=== PATIENT | female | born 1990 | race Asian ===

== ENCOUNTER 2024-05-02 12:12 | Inpatient (IN) | payer OTHER ==
[~2024-05-02] VITALS: Ht 160 cm; Wt 73.0 kg
--- NOTE | 2024-05-02 12:39 | ED.PDOC ---
GI ASSESSMENT HPI Comments 33 y.o female presents to the ED for a chief complaint of nausea, vomiting, diarrhea and abdominal pain that started today around [id number]. Patient reports pain is constant, located to the epigastric region and diffused throughout abdomen. Patient denies any recent contact exposure, fever, chills, bloody stool, or hematemesis. Patient has a history of gallbladder issues and is on Ursodiol. No cholecystectomy reported. No other medical, surgical history or allergies reported. She denies substance, alcohol or tobacco use,. Chief Complaint: Abdominal Pain Time Seen by MD: 12:04 Reviewed Notes: Nurses Notes, Medications, Allergies Allergies: Coded Allergies: NO KNOWN ALLERGIES (Unverified , 05/02/24) Information Source: Patient Mode of Arrival: Ambulatory Timing: Hours Duration: Since onset Quality: Aching Vomitus: Hard Stool: Loose Severity: Moderate Recent: None Recent Hx of: None Pain Location: Diffuse, Epigastric Modifying Factors: Nothing Associated sign and symptoms: Nausea, Vomiting, Diarrhea, Abdominal Pain Past Medical History PAST MEDICAL HISTORY: Gallstones Surgical History: Denies all surgeries DEAL ARCHITECT History: No Pertinent DEAL ARCHITECT History Family History Family History: Reviewed,noncontributory to illness, No family hx of Cancer, No family hx of DM, No family hx of Heart patrick, No family hx of HTN, No family hx ofKidney patrick, No family hx of Liver patrick, No family hx of Lung patrick, No family hx of Stroke Social History Smoker: Non-Smoker Alcohol: Denies ETOH Use Drugs: Denies Drug Use Lives In: Home Constitutional: denies: chills, diaphoresis, fatigue, fever, malaise, sweats, weakness, others EENTM: denies: blurred vision, double vision, ear bleeding, ear discharge, ear drainage, ear pain, ear ringing, eye pain, eye redness, hearing loss, mouth pain, mouth swelling, nasal discharge, nose bleeding, nose congestion, nose pain, photophobia, tearing, throat pain, throat swelling, voice changes, others Respiratory: denies: cough, hemoptysis, orthopnea, SOB at rest, shortness of breath, SOB with excertion, stridor, wheezing, others Cardiovascular: denies: chest pain, dizzy spells, diaphoresis, Dyspnea on exertion, edema, irregular heart beat, left arm pain, lightheadedness, palpitations, PND, syncope, others Gastrointestinal: reports: abdominal pain, diarrhea, nausea, vomiting; denies: abdomen distended, blood streaked bowels, constipated, dysphagia, difficulty swallowing, hematemesis, melena, poor appetite, poor fluid intake, rectal bleeding, rectal pain, others Genitourinary: denies: abnormal vagina bleeding, burning, dyspareunia, dysuria, flank pain, frequency, hematuria, incontinence, pain, , vagina discharge, urgency, others Neurological: denies: dizziness, fainting, headache, left sided numbness, left sided weakness, numbness, paresthesia, pre-existing deficit, right sided numbness, right sided weakness, seizure, speech problems, tingling, tremors, weakness, others Musculoskeletal: denies: back pain, gout, joint pain, joint swelling, muscle pain, muscle stiffness, neck pain, others Integumetry: denies: bruises, change in color, change in hair/nails, dryness, laceration, lesions, lumps, rash, wounds, others Allergic/Immunocompromised: denies: Difficulty Healing, Frequent Infections, Hives, Itching, others Hematologic/Lymphatic: denies: anemia, blood clots, easy bleeding, easy bruising, swollen glands, others Endocrine: denies: excessive hunger, excessive sweating, excessive thirst, excessive urination, flushing, intolerance to cold, intolerance to heat, unexplained weight gain, unexplained weight loss, others Psychiatric: denies: anxiety, bipolar disorder, depression, hopeless, panic disorder, schizophrenia, sleepless, suicidal, others All Other Systems: Reviewed and Negative Physical Exam General Appearance: No Apparent Distress, Normal HEENT: Normal ENT Inspection, Pharynx Normal, TMs Normal Neck: Full Range of Motion, Non-Tender, Normal, Normal Inspection Respiratory: Chest Non-Tender, Lungs Clear, No Accessory Muscle Use, No Respiratory Distress, Normal Breath Sounds Cardiovascular: No Edema, No JVD, No Murmur, No Gallop, Normal Peripheral Pulses, Regular Rate/Rhythm Breast Exam: Deferred Gastrointestinal: Diffuse, Tenderness (mild; epigastric ), Other (No rebound or guarding noted ) Genitalia: Deferred Pelvic: Deferred Rectal: Deferred Extremities: No calf tenderness, Normal capillary refill, Normal inspection, Normal range of motion, Non-tender, No pedal edema Musculoskeletal : Apperance: Normal Neurologic: Alert, rougher merchant mill II-XII nml as Tested, No Motor Deficits, Normal Affect, Normal Mood, No Sensory Deficits Cerebellar Function: Normal Reflexes: Normal Skin: Dry, Normal Color, Warm Lymphatic: No Adenopathy Was a procedure done? Was a procedure done?: No GI differential Dx Differential Diagnosis: Complete , Incomplete , Inevitable , Missed , Threatened , Abruptio placentae, Cholangitis, Cholecystitis, Constipation, Diverticular disease, Ectopic , Esophagitis, Gastritis/PUD, Gastroenteritis, Hernia, Hepatitis, Inflammatory BD, Ovarian cyst/torsion, Urinary Obstruction, UTI, Urolithiasis, Dehydration, Electrolyte Imbalance, Food Poisoning, , Bacterial, Viral, Impaction, Kidney Stone X-Ray, Labs, Meds, VS Vital Signs Date Time Temp Pulse Resp B/P (MAP) Pulse Ox O2 Delivery O2 Flow Rate FiO2 05/02/24 13:49 88 15 129/70 05/02/24 13:30 85 17 97 Room Air 05/02/24 13:30 98.5 79 17 121/64 (83) 98 98.5 05/02/24 12:27 97.6 75 16 105/69 (81) 97 Lab Test 05/02/24 12:38 05/02/24 12:33 Range/Units Urine Color Yellow Yellow Urine Clarity Clear Clear Urine pH 5.5 5.0-9.0 Urine Specific [place] 1.029 1.001-1.035 Urine Protein Trace H Negative Urine Ketones Negative Negative Urine Blood 1+ H Negative /uL Urine Nitrite Negative Negative Urine Bilirubin Negative Negative Urine Urobilinogen Normal Negative mg/dL Urine Leukocyte Esterase 1+ Negative /uL Urine RBC 6 0 - 4 /hpf Urine WBC 2 0 - 5 /hpf Urine Squamous Epithelial Cells Few <5 /hpf Urine Bacteria Few H None Seen /hpf Urine Mucus Few None Seen Urine Glucose Normal Normal mg/dL White Blood Count 12.0 H 4.4-10.8 10^3/uL Red Blood Count 6.11 H 4.0-5.20 10^6/uL Hemoglobin 13.6 12.2-16.2 g/dL Hematocrit 43.2 36.0-46.0 % Mean Corpuscular Volume 70.7 L 80.0-100.0 fL Mean Corpuscular Hemoglobin 22.3 L 28.0-32.0 pg Mean Corpuscular Hemoglobin Concent 31.5 L 32.0-36.0 g/dL Red Cell Distribution Width 14.8 H 11.8-14.3 % Platelet Count 289 140-450 10^3/uL Mean Platelet Volume 7.7 6.9-10.8 fL Neutrophils (%) (Auto) 83.1 H 37.0-80.0 % Lymphocytes (%) (Auto) 11.8 10.0-50.0 % Monocytes (%) (Auto) 4.6 0.0-12.0 % Eosinophils (%) (Auto) 0.4 0.0-7.0 % Basophils (%) (Auto) 0.1 0.0-2.0 % Neutrophils # (Auto) 10.0 H 1.6-8.6 10 ^3/uL Lymphocytes # (Auto) 1.4 0.4-5.4 10 ^3/uL Monocytes # (Auto) 0.6 0-1.3 10 ^3/uL Eosinophils # (Auto) 0 0-0.8 10 ^3/uL Basophils # (Auto) 0 0-0.2 10 ^3/uL Nucleated Red Blood Cells 0.0 % Sodium Level 141 136-145 mmol/L Potassium Level 3.7 3.5-5.1 mmol/L Chloride Level 103 98-107 mmol/L Carbon Dioxide Level 29 20-31 mmol/L Anion Gap 9 5-15 Blood Urea Nitrogen 12 9-23 mg/dL Creatinine 0.65 0.550-1.02 mg/dL Glomerular Filtration Rate Calc 118 >90 mL/min BUN/Creatinine Ratio 18.5 10.0-20.0 Serum Glucose 104 74-106 mg/dL Calcium Level 10.2 8.7-10.4 mg/dL Total Bilirubin 1.3 H 0.2-1.0 mg/dL Aspartate Amino Transferase (AST) 17 13-40 U/L Alanine Aminotransferase (ALT) 24 7-40 U/L Alkaline Phosphatase 54 46-116 U/L Total Protein 8.0 5.7-8.2 g/dL Albumin 5.0 H 3.2-4.8 g/dL Lipase 36 12-53 U/L Beta HCG, Quantitative 1.6 1.5-4.2 mIU/mL Current Medications Medications (Trade) Dose Ordered Sig/Efra Route Start Time Stop Time Status Last Admin Ondansetron HCl (Zofran) 4 mg ONCE ONCE IV 05/02/24 12:30 05/02/24 12:31 DC 05/02/24 13:48 Morphine Sulfate 2 mg ONCE ONCE IV 05/02/24 12:30 05/02/24 12:31 DC 05/02/24 13:49 Time of 1ST Reevaluation: 12:32 Reevaluation 1ST: Unchanged Time of 2ND Reevaluation: 14:11 Reevaluation 2ND: Unchanged Patient Education/Counseling: Diagnosis, Treatment, Prognosis Family Education/Counseling: No Family Present Additional Information Ordered Test- CBC, CMP, UA , hcg, gb us Reviewed Results- LAB including: Beta HCG, Lipase. US gallbladder Discuss Tx/Results-medical personnel, financial services consultant independent interpretation of test results from other providers- gb us- agree with radiology pt has intractable biliary colic, with evidence of biliary obstruction, with dilated CBD and elevated tbili. pt will be admitted for surgery/gi consult and pain control Departure 1 Departure Time of Disposition: 14:16 Impression: Primary Impression: Biliary obstruction Additional Impressions: Intractable abdominal pain Hyperbilirubinemia Disposition: ADMITTED INPATIENT Admit to: Med Surg Condition: Stable Critical Care Note Critical Care Time?: Yes (45 min-critical care time only) Critical care comment: due to concerns for sudden deterioration of pt's condition, the patient's care required my most attentive level and highest readiness to intervene. i assessed him, ordered the appropriate orders, reviewed the results, and reassessed the patient's response, formulated a care plan, communicated with medical personnel and consultants. total time include at least 50% face-face interaction and does not include any procedures Stability Stability form required: No I personally scribed for YASMINE WATTS MD ([facility]) on 05/02/24 at 12:39. Electronically submitted by Ayala Medina ([employer]). I personally scribed for YASMINE WATTS MD ([facility]) on 05/02/24 at 13:00. Electronically submitted by Ayala Medina ([employer]). YASMINE WATTS MD May 02, 2024 12:39
[2024-05-02 12:46] LABS: Basophils # (auto) 0 10 ^3/uL (0-0.2); Eosinophils # (auto) 0 10 ^3/uL (0-0.8); Eosinophils % (auto) 0.4 % (0.0-7.0); Lymphocytes # (auto) 1.4 10 ^3/uL (0.4-5.4); Mean Corpuscular Hemoglobin 22.3 pg (28.0-32.0); Monocytes # (auto) 0.6 10 ^3/uL (0-1.3)
[2024-05-02 12:48] LABS: Basophils % (auto) 0.1 % (0.0-2.0); Hematocrit 43.2 % (36.0-46.0); Hemoglobin 13.6 g/dL (12.2-16.2); Lymphocytes % (auto) 11.8 % (10.0-50.0); Mean Corpuscular Hgb Conc. 31.5 g/dL (32.0-36.0); Mean Corpuscular Volume 70.7 fL (80.0-100.0); Monocytes % (auto) 4.6 % (0.0-12.0); Neutrophils % (auto) 83.1 % (37.0-80.0); Platelet Count (auto) 289 10^3/uL (140-450); Red Blood Cells 6.11 10^6/uL (4.0-5.20); Red Cell Distribution Width 14.8 % (11.8-14.3)
[2024-05-02 12:51] LABS: Urine Bacteria FEW /hpf (None Seen); Urine Blood 1+ /uL (Negative); Urine Clarity Clear (Clear); Urine Color Yellow (Yellow); Urine Mucus FEW (None Seen); Urine Protein, UAD TRACE (Negative); Urine Specific Gravity 1.029 (1.001-1.035); Urine Urobilinogen Normal (Negative); Urine WBC 2 /hpf (0 - 5); Urine pH 5.5 (5.0-9.0)
[2024-05-02 13:11] LABS: Alanine Aminotransferase 24 U/L (7-40); Alkaline Phosphatase 54 U/L (46-116); Anion Gap 9 (5-15); Aspartate Aminotransferase 17 U/L (13-40); BUN/Creatinine Ratio 18.5 (10.0-20.0); Blood Urea Nitrogen 12 mg/dL (9-23); Calcium 10.2 mg/dL (8.7-10.4); Carbon Dioxide 29 mmol/L (20-31); Chloride 103 mmol/L (98-107); Glucose 104 mg/dL (74-106); Potassium 3.7 mmol/L (3.5-5.1); Sodium 141 mmol/L (136-145)
[2024-05-02 13:12] LABS: Bilirubin, Total 1.3 mg/dL (0.2-1.0)
[2024-05-02 13:23] LABS: Lipase 36 U/L (12-53)
--- NOTE | 2024-05-02 13:43 | DVH ---
INDICATION: epigastric pain TECHNIQUE: Multiple real-time sonographic images were obtained of the right upper quadrant. COMPARISON: None Comments: Per mixing technician, difficult exam due to body habitus. FINDINGS: The liver demonstrates increased echotexture without focal mass lesions. The liver measures 17 cm. Normal hepatopetal flow in the liver. There is no intrahepatic ductal dilatation. The common duct measures 0.8 cm. The gallbladder is completely filled with gallstones and sludge. Specifically there does appear to be a shadowing gallstone near the gallbladder neck. There is gallbladder wall thickening ( 6 mm) and l ikely some pericholecystic fluid. The right kidney measures 12.6 cm in length. The right kidney is normal in contour, size, and shape. The echogenicity is normal. There is no hydronephrosis. Anechoic 1.4 cm structure at the right inf erior renal pole is consistent with a cyst. The pancreas is not well visualized due to overlying bowel gas. IMPRESSION: 1. Gallbladder is filled with gallstones and sludge, and there appears to be a large stone near the gallbladder neck. There is also gallbladder wall thickening ( 6 mm) and probable pericholecystic flui d. Findings are suspicious for acute cholecystitis. 2. Mild prominence of the common bile duct (8 mm). Can not exclude common bile duct obstruction. 3. Hepatic steatosis. 4. Small right renal cyst.
[2024-05-02] MEDS: ONDANSETRON HCL 4 MG/2 ML VIAL IV ONE (13:48)
[2024-05-02] MEDS: MORPHINE SULFATE INJ 2 MG/ml SYRG IV ONE (13:49)
[2024-05-02] MEDS: SODIUM CHLORIDE 0.9% 1,000 ML IV ONE (14:15)
[2024-05-02 14:40] VITALS: BP 112/64; PULSE 77; RESP 18; TEMP 98.3; O2SAT 99
[2024-05-02] MEDS ORDERED: MORPHINE SULFATE INJ 2 MG/ml SYRG IV PRN (15:15)
[2024-05-02] MEDS ORDERED: LORazepam 0.5 MG TAB PO PRN (15:15)
[2024-05-02] MEDS ORDERED: ACETAMINOPHEN 325 MG TAB PO PRN (15:15)
[2024-05-02] MEDS ORDERED: DOCUSATE SOD 100 MG CAP PO PRN (15:15)
[2024-05-02] MEDS: fentaNYL CITRATE 100 MCG/2 ML VL IV ONE (15:24)
--- NOTE | 2024-05-02 15:36 | DVHHP2 ---
History of Present Illness Reason for Visit: Abdominal pain History of Present Illness 33-year-old female who obese comes to the ED with complaints of nausea vomiting abdominal pain patient does have a history of gallstones states no other medical history takes no other medications with having right upper quadrant pain is evaluated in the ED states that for her gallstone history she does take medications including estradiol never had a history of reported cholecystectomy or hoping abdominal surgery at any point in time patient now has worsening abdominal pain ultrasound of the gallbladder was completed in the ED patient with believes signs of acute cholecystitis recommended for further evaluation and possible surgical evaluation. Review of Systems Constitutional: Yes: Weakness; No: Fever, Chills, Sweats, Malaise, Other Eyes: No: Pain, Vision change, Conjunctivae inflammation, Eyelid inflammation, Other, Redness ENT: No: Ear pain, Ear discharge, Nose pain, Nose discharge, Nose congestion, Mouth pain, Mouth swelling, Throat pain, Throat swelling, Other Respiratory: No: Cough, Dry, Shortness of breath, SOB with excertion, Wheezing, Hemoptysis, Pleuritic Pain, Sputum, Wheezing, Other Cardiovascular: No: Chest Pain, Palpitations, Orthopnea, Paroxysmal Noc. Dyspnea, Edema, Lt Headedness, Other Gastrointestinal: Abdominal Pain; No: Nausea, Vomiting, Diarrhea, Constipation, Melena, Hematochezia, Other Genitourinary: No Dysuria, No Frequency, No Incontinence, No Hematuria, No Retention, No Other Musculoskeletal: No: other, neck pain, shoulder pain, arm pain, back pain, hand pain, leg pain, foot pain Skin: No: Rash, Lesions, Jaundice, Bruising, Other Neurological: No: Weakness, Numbness, Incoordination, Change in speech, Confusion, Seizures, Other Allergies: Coded Allergies: NO KNOWN ALLERGIES (Unverified , 05/02/24) Medications Current Medications Medications Dose Ordered Sig/Efra Route Start Time Stop Time Status Last Admin Dose Admin Ceftriaxone Sodium 50 ml @ 100 mls/hr DAILY IV 05/02/24 15:15 Lorazepam 0.5 mg Q6HP PRN PO 05/02/24 15:15 Al Hydrox/Mg Hydrox/Simethicone 30 ml Q6HP PRN PO 05/02/24 15:15 Docusate Sodium 100 mg BIDPRN PRN PO 05/02/24 15:15 Acetaminophen 650 mg Q6HP PRN PO 05/02/24 15:15 Acetaminophen/ Hydrocodone Bitart 1 tab Q4HP PRN PO 05/02/24 15:15 Ondansetron HCl 4 mg Q4HP PRN IV 05/02/24 15:15 Morphine Sulfate 2 mg Q4HPRN PRN IV 05/02/24 15:15 Exam Vital Signs Vital Signs Date Time Temp Pulse Resp B/P (MAP) Pulse Ox O2 Delivery O2 Flow Rate FiO2 05/02/24 15:24 130/70 05/02/24 15:24 77 18 05/02/24 15:15 98.0 99 98.0 05/02/24 13:30 Room Air General Appearance: Alert, Oriented X3 HEENT: Atraumatic, PERRLA, EOMI Respiratory: Clear to auscultation, Normal air movement Cardiovascular: Regular rate, Normal S1, Normal S2 Abdominal: Normal bowel sounds, Soft, No tenderness Extremities: No clubbing, No cyanosis, No edema Skin: No rashes, No breakdown Neuro: Normal gait, Normal speech Psych/Mental Status: Mood NL Labs/Xrays Labs Test 05/02/24 12:38 05/02/24 12:33 Range/Units Urine Color Yellow Yellow Urine Clarity Clear Clear Urine pH 5.5 5.0-9.0 Urine Specific [place] 1.029 1.001-1.035 Urine Protein Trace H Negative Urine Ketones Negative Negative Urine Blood 1+ H Negative /uL Urine Nitrite Negative Negative Urine Bilirubin Negative Negative Urine Urobilinogen Normal Negative mg/dL Urine Leukocyte Esterase 1+ Negative /uL Urine RBC 6 0 - 4 /hpf Urine WBC 2 0 - 5 /hpf Urine Squamous Epithelial Cells Few <5 /hpf Urine Bacteria Few H None Seen /hpf Urine Mucus Few None Seen Urine Glucose Normal Normal mg/dL White Blood Count 12.0 H 4.4-10.8 10^3/uL Red Blood Count 6.11 H 4.0-5.20 10^6/uL Hemoglobin 13.6 12.2-16.2 g/dL Hematocrit 43.2 36.0-46.0 % Mean Corpuscular Volume 70.7 L 80.0-100.0 fL Mean Corpuscular Hemoglobin 22.3 L 28.0-32.0 pg Mean Corpuscular Hemoglobin Concent 31.5 L 32.0-36.0 g/dL Red Cell Distribution Width 14.8 H 11.8-14.3 % Platelet Count 289 140-450 10^3/uL Mean Platelet Volume 7.7 6.9-10.8 fL Neutrophils (%) (Auto) 83.1 H 37.0-80.0 % Lymphocytes (%) (Auto) 11.8 10.0-50.0 % Monocytes (%) (Auto) 4.6 0.0-12.0 % Eosinophils (%) (Auto) 0.4 0.0-7.0 % Basophils (%) (Auto) 0.1 0.0-2.0 % Neutrophils # (Auto) 10.0 H 1.6-8.6 10 ^3/uL Lymphocytes # (Auto) 1.4 0.4-5.4 10 ^3/uL Monocytes # (Auto) 0.6 0-1.3 10 ^3/uL Eosinophils # (Auto) 0 0-0.8 10 ^3/uL Basophils # (Auto) 0 0-0.2 10 ^3/uL Nucleated Red Blood Cells 0.0 % Sodium Level 141 136-145 mmol/L Potassium Level 3.7 3.5-5.1 mmol/L Chloride Level 103 98-107 mmol/L Carbon Dioxide Level 29 20-31 mmol/L Anion Gap 9 5-15 Blood Urea Nitrogen 12 9-23 mg/dL Creatinine 0.65 0.550-1.02 mg/dL Glomerular Filtration Rate Calc 118 >90 mL/min BUN/Creatinine Ratio 18.5 10.0-20.0 Serum Glucose 104 74-106 mg/dL Calcium Level 10.2 8.7-10.4 mg/dL Total Bilirubin 1.3 H 0.2-1.0 mg/dL Aspartate Amino Transferase (AST) 17 13-40 U/L Alanine Aminotransferase (ALT) 24 7-40 U/L Alkaline Phosphatase 54 46-116 U/L Total Protein 8.0 5.7-8.2 g/dL Albumin 5.0 H 3.2-4.8 g/dL Lipase 36 12-53 U/L Beta HCG, Quantitative 1.6 1.5-4.2 mIU/mL Assessment/Plan Assessment/Plan Admit to med surge Suspected acute cholecystitis secondary to gallstones Surgical consult evaluation Patient with leukocytosis IV hydration IV antibiotics with Flagyl q.6 P.r.n. pain med education No acute lives at the infection possible UTI Plan discussed with: Patient My Orders Orders - EVENS HERRERA MD Procedure Category Date Status Time Ceftriaxone 1gm/50ml PHA 05/02/24 In Process D5w (Rocephin) 15:15 Admit ADMIT 05/02/24 Transmitted 15:12 Code Status CODE 05/02/24 Transmitted 15:12 Vital Signs [facility] 05/02/24 In Process 15:12 Review Orders With [facility] 05/02/24 In Process Adm.Md 15:12 Npo (Nothing By DIET 05/02/24 Transmitted Mouth) Diet Dinner Lorazepam Tablet PHA 05/02/24 In Process (Ativan Tablet) 15:15 Alum & Mag PHA 05/02/24 In Process Hydrox-Simethicone 15:15 Docusate Sodium PHA 05/02/24 In Process Capsule (Colace 15:15 Acetaminophen Tablet PHA 05/02/24 In Process (Tylenol Tablet) 15:15 Notify Of Changes [facility] 05/02/24 In Process From Base 15:12 Advance Directive [facility] 05/02/24 In Process 15:12 Basic Metabolic Panel LAB 05/03/24 Verified 04:00 Complete Blood Count LAB 05/03/24 Verified 04:00 Patient Condition ORDERS 05/02/24 Transmitted 15:12 Allergies [facility] 05/02/24 In Process 15:12 Hydrocodone-Acet PHA 05/02/24 In Process 5/325mg Tab ([place] 15:15 Ondansetron Hcl PHA 05/02/24 In Process (Zofran) 15:15 Morphine Sulfate PHA 05/02/24 In Process Injection 15:15 Notify Md Of Changes [facility] 05/02/24 In Process From Base 15:12 Oxygen By Nasal RT 05/02/24 Transmitted Cannula 15:12 * Surgical Consult CONS 05/02/24 Transmitted Problem List: (1) Hyperbilirubinemia (2) Biliary obstruction (3) Intractable abdominal pain Date of Service: May 02, 2024 Billing Provider: EVENS HERRERA MD Common Visit Codes: [id number] INP/OBS CARE (HIGH) EVENS HERRERA MD May 02, 2024 15:36
[2024-05-02] MEDS: cefTRIAXone 1GM/50ML D5W 50 ML IV SCH (17:00)
[2024-05-02 17:47] VITALS: BP 103/58; PULSE 85; RESP 16; TEMP 97.6; O2SAT 96
[2024-05-02 18:09] VITALS: O2SAT 98
[2024-05-02] MEDS ORDERED: URSO300C2 PO (18:37)
[2024-05-02 20:00] VITALS: PULSE 74; RESP 16; O2SAT 98
[2024-05-02] MEDS: ONDANSETRON HCL 4 MG/2 ML VIAL IV PRN (21:00)
[2024-05-02] MEDS: MAALOX PLUS or MAALOX 30 ML PO PRN (21:33)
[2024-05-02] MEDS: HYDROcodone-ACET 5/325MG TAB PO PRN (21:34)
[2024-05-03] VITALS (8 sets, daily range): BP systolic 112–138; BP diastolic 62–82; PULSE 58–86; RESP 16–18; TEMP 98.2–98.7; O2SAT 95–98
[2024-05-03 07:04] LABS: Basophils # (auto) 0 10 ^3/uL (0-0.2); Basophils % (auto) 0.1 % (0.0-2.0); Eosinophils # (auto) 0 10 ^3/uL (0-0.8); Hematocrit 37.9 % (36.0-46.0); Lymphocytes % (auto) 11.5 % (10.0-50.0); Mean Corpuscular Hemoglobin 22.3 pg (28.0-32.0); Mean Corpuscular Hgb Conc. 31.7 g/dL (32.0-36.0); Mean Corpuscular Volume 70.4 fL (80.0-100.0); Monocytes # (auto) 0.6 10 ^3/uL (0-1.3); Monocytes % (auto) 7.6 % (0.0-12.0); Neutrophils # (auto) 6.7 10 ^3/uL (1.6-8.6); Neutrophils % (auto) 80.8 % (37.0-80.0); Platelet Count (auto) 234 10^3/uL (140-450); Red Blood Cells 5.38 10^6/uL (4.0-5.20); Red Cell Distribution Width 14.6 % (11.8-14.3); White Blood Cell 8.3 10^3/uL (4.4-10.8)
[2024-05-03 07:14] LABS: Chloride 105 mmol/L (98-107); Sodium 141 mmol/L (136-145)
[2024-05-03 07:15] LABS: Anion Gap 11 (5-15); Calcium 9.2 mg/dL (8.7-10.4); Carbon Dioxide 25 mmol/L (20-31)
[2024-05-03 07:18] LABS: Potassium 3.3 mmol/L (3.5-5.1)
[2024-05-03 07:21] LABS: Glucose 91 mg/dL (74-106)
[2024-05-03 07:30] LABS: Blood Urea Nitrogen 8 mg/dL (9-23)
--- NOTE | 2024-05-03 10:32 | DVHINCON2 ---
Date of service: May 03, 2024 History of Present Illness 33-year-old female with a previous history of gallstones admitted secondary to one day history of severe right upper quadrant abdominal pain associated with nausea and vomiting and diarrhea. Past Medical History History of gallstones Past Surgical History None Family History: Diabetes mellitus G8 MOTHER Hypertension G8 FATHER Family History Noncontributory Social History No alcohol, tobacco, IV drug use Allergies: Coded Allergies: NO KNOWN ALLERGIES (Unverified , 05/02/24) Home Meds Reported Medications Ursodiol (Ursodiol) 300 Mg Cap, 1 CAP PO BID 05/02/24 Current Medications Current Medications Medications (Trade) Dose Ordered Sig/Efra Route PRN Reason Start Time Stop Time Status Last Admin Ceftriaxone Sodium 50 ml @ 100 mls/hr DAILY IV 05/02/24 15:15 05/03/24 09:42 Lorazepam (Ativan Tablet) 0.5 mg Q6HP PRN PO ANXIETY 05/02/24 15:15 Al Hydrox/Mg Hydrox/Simethicone (Maalox Plus) 30 ml Q6HP PRN PO FOR STOMACH DISTRESS 05/02/24 15:15 05/02/24 21:33 Docusate Sodium (Colace Capsule) 100 mg BIDPRN PRN PO FOR CONSTIPATION 05/02/24 15:15 Acetaminophen (Tylenol Tablet) 650 mg Q6HP PRN PO PAIN SCALE 1-3 OR TEMP>100.4 05/02/24 15:15 Acetaminophen/ Hydrocodone Bitart ([place] 5/325MG Tab) 1 tab Q4HP PRN PO MODERATE PAIN (4-6 PAIN SCALE) 05/02/24 15:15 05/02/24 21:34 Ondansetron HCl (Zofran) 4 mg Q4HP PRN IV NAUSEA / VOMITING 05/02/24 15:15 05/03/24 09:43 Morphine Sulfate 2 mg Q4HPRN PRN IV SEVERE PAIN (7-10 PAIN SCALE) 05/02/24 15:15 Vital Signs Vital Signs Date Time Temp Pulse Resp B/P (MAP) Pulse Ox O2 Delivery O2 Flow Rate FiO2 05/03/24 09:00 98.4 77 18 112/62 (79) 98 98.4 05/03/24 07:52 Room Air* 0 21 Physical Exam GEN: Age-appropriate female in no acute distress. Alert. HEENT: Normocephalic atraumatic. Moist mucous membranes. Anicteric sclerae. CV: RRR Respiratory: CTAB ABD: Epigastric and right upper quadrant tenderness to palpation with minimal guarding. Nondistended. Abdominal ultrasound: Gallbladder is filled with gallstones and sludge with a large stone near the neck of the gallbladder. There was also gallbladder thickening measuring 6 mm with probable pericholecystic fluid suspicious for acute cholecystitis. Prominent common bile duct at 8 mm. Labs/Diagnostic Data Labs Test 05/03/24 06:42 05/02/24 12:38 05/02/24 12:33 Range/Units White Blood Count 8.3 # 4.4-10.8 10^3/uL Red Blood Count 5.38 H 4.0-5.20 10^6/uL Hemoglobin 12.0 L 12.2-16.2 g/dL Hematocrit 37.9 # 36.0-46.0 % Mean Corpuscular Volume 70.4 L 80.0-100.0 fL Mean Corpuscular Hemoglobin 22.3 L 28.0-32.0 pg Mean Corpuscular Hemoglobin Concent 31.7 L 32.0-36.0 g/dL Red Cell Distribution Width 14.6 H 11.8-14.3 % Platelet Count 234 140-450 10^3/uL Mean Platelet Volume 7.2 6.9-10.8 fL Neutrophils (%) (Auto) 80.8 H 37.0-80.0 % Lymphocytes (%) (Auto) 11.5 10.0-50.0 % Monocytes (%) (Auto) 7.6 0.0-12.0 % Eosinophils (%) (Auto) 0.0 0.0-7.0 % Basophils (%) (Auto) 0.1 0.0-2.0 % Neutrophils # (Auto) 6.7 1.6-8.6 10 ^3/uL Lymphocytes # (Auto) 1.0 0.4-5.4 10 ^3/uL Monocytes # (Auto) 0.6 0-1.3 10 ^3/uL Eosinophils # (Auto) 0 0-0.8 10 ^3/uL Basophils # (Auto) 0 0-0.2 10 ^3/uL Nucleated Red Blood Cells 0.0 % Sodium Level 141 136-145 mmol/L Potassium Level 3.3 L 3.5-5.1 mmol/L Chloride Level 105 98-107 mmol/L Carbon Dioxide Level 25 20-31 mmol/L Anion Gap 11 5-15 Blood Urea Nitrogen 8 L 9-23 mg/dL Creatinine 0.50 L 0.550-1.02 mg/dL Glomerular Filtration Rate Calc 125 >90 mL/min BUN/Creatinine Ratio 16.0 10.0-20.0 Serum Glucose 91 74-106 mg/dL Calcium Level 9.2 8.7-10.4 mg/dL Urine Color Yellow Yellow Urine Clarity Clear Clear Urine pH 5.5 5.0-9.0 Urine Specific [place] 1.029 1.001-1.035 Urine Protein Trace H Negative Urine Ketones Negative Negative Urine Blood 1+ H Negative /uL Urine Nitrite Negative Negative Urine Bilirubin Negative Negative Urine Urobilinogen Normal Negative mg/dL Urine Leukocyte Esterase 1+ Negative /uL Urine RBC 6 0 - 4 /hpf Urine WBC 2 0 - 5 /hpf Urine Squamous Epithelial Cells Few <5 /hpf Urine Bacteria Few H None Seen /hpf Urine Mucus Few None Seen Urine Glucose Normal Normal mg/dL Total Bilirubin 1.3 H 0.2-1.0 mg/dL Aspartate Amino Transferase (AST) 17 13-40 U/L Alanine Aminotransferase (ALT) 24 7-40 U/L Alkaline Phosphatase 54 46-116 U/L Total Protein 8.0 5.7-8.2 g/dL Albumin 5.0 H 3.2-4.8 g/dL Lipase 36 12-53 U/L Beta HCG, Quantitative 1.6 1.5-4.2 mIU/mL Assessment 1. Acute cholecystitis with possible choledocholithiasis Plan/Recommendation 1. MRCP to assess for possible common bile duct stone. If it is negative we will proceed with the laparoscopic cholecystectomy possible open surgery. Informed consent: The surgery and its risks including but not limited to infection, bleeding requiring possible blood transfusion with the risk of hepatitis or HIV infection, open cholecystectomy, possible cystic duct leak or retained common bile duct stone requiring further intervention such as an ERCP, possible perioperative MS or stroke were explained to the patient. All questions were answered to her satisfaction. She expressed verbal understanding and wished to proceed with the surgery. Plan discussed with: Patient WILBERTO DISLA MD May 03, 2024 10:32
[2024-05-03] MEDS: D5W/SOD CHL 0.45%/KCL 20MEQ 1,000 ML IV SCH (12:00)
--- NOTE | 2024-05-03 12:50 | DVHPN2 ---
Subjective Patient denies any pain at this time. Reviewed: Care Plan, H&P, Labs, Medications Changes from previous H/P or p: No Changes General: Per HPI Eyes: No Pain, No Vision change, No Conjunctivae inflammation, No Eyelid inflammation, No Other, No Redness ENT: No Ear pain, No Ear discharge, No Nose pain, No Nose discharge, No Nose congestion, No Mouth pain, No Mouth swelling, No Throat pain, No Throat swelling, No Other Cardiovascular: No Chest Pain, No Palpitations, No Orthopnea, No Paroxysmal Noc. Dyspnea, No Edema, No Lt Headedness, No Other Respiratory: No Cough, No Dry, No Shortness of breath, No SOB with excertion, No Wheezing, No Hemoptysis, No Pleuritic Pain, No Sputum, No Other Gastrointestinal: No Nausea, No Vomiting; Abdominal Pain; No Diarrhea, No Constipation, No Melena, No Hematochezia, No Other Genitourinary: No Dysuria, No Frequency, No Incontinence, No Hematuria, No Retention, No Other Musculoskeletal: No other, No neck pain, No shoulder pain, No arm pain, No back pain, No hand pain, No leg pain, No foot pain Skin: No Rash, No Lesions, No Jaundice, No Bruising, No Other Objective Vitals Vital Signs Date Time Temp Pulse Resp B/P (MAP) Pulse Ox O2 Delivery O2 Flow Rate FiO2 05/03/24 09:00 98.4 77 18 112/62 (79) 98 98.4 05/03/24 07:52 Room Air* 0 21 Intake/Output Intake and Output 05/03/24 07:00 Intake Total 1100 ml Balance 1100 ml Intake Oral 0 ml IV Total 1100 ml # Voids 3 # Bowel Movements 1 General Appearance: Alert, Oriented X3, Cooperative, No acute distress, mild distress HEENT: Atraumatic, PERRLA Cardiovascular: Normal S1, Normal S2 Abdomen: Normal bowel sounds, Soft, No tenderness Musculoskeletal: Normal sensory function, Normal motor function Neuro: Normal gait, Normal speech Psych/Mental Status: Mental status NL, Mood NL Medications Current Medications Medications Dose Ordered Sig/Efra Route Start Time Stop Time Status Last Admin Dose Admin Ceftriaxone Sodium 50 ml @ 100 mls/hr DAILY IV 05/02/24 15:15 05/03/24 09:42 100 MLS/HR Lorazepam 0.5 mg Q6HP PRN PO 05/02/24 15:15 Al Hydrox/Mg Hydrox/Simethicone 30 ml Q6HP PRN PO 05/02/24 15:15 05/02/24 21:33 30 ML Docusate Sodium 100 mg BIDPRN PRN PO 05/02/24 15:15 Acetaminophen 650 mg Q6HP PRN PO 05/02/24 15:15 Acetaminophen/ Hydrocodone Bitart 1 tab Q4HP PRN PO 05/02/24 15:15 05/02/24 21:34 1 TAB Ondansetron HCl 4 mg Q4HP PRN IV 05/02/24 15:15 05/03/24 09:43 4 MG Morphine Sulfate 2 mg Q4HPRN PRN IV 05/02/24 15:15 Metronidazole 100 ml @ 100 mls/hr Q8HR IV 05/03/24 14:00 Potassium Chloride/Dextrose/ Sod Cl 1,000 ml @ 100 mls/hr Q10H IV 05/03/24 12:00 Laboratory Results Laboratory Tests 05/03/24 06:42 Chemistry Test 05/03/24 06:42 Calcium Level 9.2 mg/dL (8.7-10.4) Urinalysis Test 05/02/24 12:38 Urine Color Yellow (Yellow) Urine Clarity Clear (Clear) Urine pH 5.5 (5.0-9.0) Urine Specific [place] 1.029 (1.001-1.035) Urine Protein Trace (Negative) H Urine Ketones Negative (Negative) Urine Blood 1+ /uL (Negative) H Urine Nitrite Negative (Negative) Urine Bilirubin Negative (Negative) Urine Urobilinogen Normal mg/dL (Negative) Urine Leukocyte Esterase 1+ /uL (Negative) Urine RBC 6 /hpf (0 - 4) Urine WBC 2 /hpf (0 - 5) Urine Squamous Epithelial Cells Few /hpf (<5) Urine Bacteria Few /hpf (None Seen) H Urine Mucus Few (None Seen) Urine Glucose Normal mg/dL (Normal) Labs and/or images reviewed: Labs reviewed by me, Image(s) reviewed by me Assessment/Plan Assessment/Plan Impression: -cholelithiasis with cholecystitis -rule out choledocholithiasis -UTI Plan: -surgical consultation. Discussed with Dr. Nagy that MRCP is on hold because MRI is currently inoperable. States he will re-evaluate the patient -continue antibiotic therapy with Rocephin, add Flagyl -pain management -NPO status -continue IV fluids -further course of care per surgical recommendations Total time spent with patient discussing and formulating plan of care: 35 minutes. This medical document was created using an electronic medical record system with [employer] dictation system. Although this document has been carefully reviewed, there may still be some phonetic and typographical errors. These areas are purely typographical due to imperfections of the software programs, and do not reflect any compromise in the patient's medical care. Plan discussed with: Patient, Other (RN) My Orders Orders - JOANN MYLES NP Procedure Category Date Status Time Metronidazole PHA 05/03/24 In Process 500mg/100ml (Flagyl 14:00 D5w/Sod Chl 0.45%/Kcl PHA 05/03/24 In Process 20meq 12:00 Date of Service: May 03, 2024 Billing Provider: JOANN MYLES NP Common Visit Codes: [id number] INP/OBS CARE(HIGH) JOANN MYLES NP May 03, 2024 12:50
[2024-05-03] MEDS: metroNIDAZOLE 500MG/100ML 100 ML IV SCH (13:30)
[2024-05-03] MEDS: SOD CHL 0.9%/ KCL 20MEQ 1,000 ML IV SCH (17:02)
[2024-05-04] VITALS (9 sets, daily range): BP systolic 115–128; BP diastolic 64–79; PULSE 57–107; RESP 16–18; TEMP 98.2–99; O2SAT 91–100
[2024-05-04 05:23] LABS: Basophils # (auto) 0 10 ^3/uL (0-0.2); Basophils % (auto) 0.3 % (0.0-2.0); Eosinophils # (auto) 0 10 ^3/uL (0-0.8); Lymphocytes # (auto) 1.1 10 ^3/uL (0.4-5.4); Mean Corpuscular Hemoglobin 22.7 pg (28.0-32.0); Monocytes # (auto) 0.6 10 ^3/uL (0-1.3); Red Cell Distribution Width 14.8 % (11.8-14.3)
[2024-05-04 05:27] LABS: Eosinophils % (auto) 0.5 % (0.0-7.0); Hemoglobin 12.2 g/dL (12.2-16.2); Lymphocytes % (auto) 19.6 % (10.0-50.0); Mean Corpuscular Hgb Conc. 32.3 g/dL (32.0-36.0); Mean Corpuscular Volume 70.4 fL (80.0-100.0); Monocytes % (auto) 10.8 % (0.0-12.0); Neutrophils % (auto) 68.8 % (37.0-80.0); Platelet Count (auto) 225 10^3/uL (140-450); Red Blood Cells 5.39 10^6/uL (4.0-5.20); White Blood Cell 5.8 10^3/uL (4.4-10.8)
[2024-05-04 05:47] LABS: Alanine Aminotransferase 26 U/L (7-40); Albumin 4.2 g/dL (3.2-4.8); Anion Gap 12 (5-15); Aspartate Aminotransferase 21 U/L (13-40); BUN/Creatinine Ratio 12.7 (10.0-20.0); Calcium 8.9 mg/dL (8.7-10.4); Carbon Dioxide 22 mmol/L (20-31); Glucose 75 mg/dL (74-106); INR 1.09 (0.9-1.15); Partial Thromboplastin Time 27.3 SEC (24.5-34.5); Prothrombin Time 11.5 sec (9.3-11.8); Sodium 142 mmol/L (136-145); Total Protein 6.5 g/dL (5.7-8.2)
[2024-05-04 05:55] LABS: Alkaline Phosphatase 40 U/L (46-116); Bilirubin, Total 1.5 mg/dL (0.2-1.0); Blood Urea Nitrogen 7 mg/dL (9-23); Chloride 108 mmol/L (98-107); Potassium 3.3 mmol/L (3.5-5.1)
[2024-05-04] MEDS ORDERED: MIDAZOLAM HCL 2MG/2ML 2ml VIAL (1mg/ml) ONE (08:44)
[2024-05-04] MEDS ORDERED: PROPOFOL 10 MG/ML 20 ML IV ONE (08:44)
[2024-05-04] MEDS ORDERED: fentaNYL CITRATE 100 MCG/2 ML VL ONE (08:44)
[2024-05-04] MEDS ORDERED: DexAMETHasone SOD PHOS 10MG/1ML VIAL INJ ONE (08:45)
[2024-05-04] MEDS ORDERED: LIDOCAINE 1% INJ PF 5ML AMP ONE (08:45)
[2024-05-04] MEDS ORDERED: ONDANSETRON HCL 4 MG/2 ML VIAL ONE (08:45)
[2024-05-04] MEDS: SUCCINYLCHOLINE CHLORIDE 20 MG/ML 10ML VIAL IV ONE (08:46)
[2024-05-04] MEDS ORDERED: ROCURONIUM 10MG/ML 10ML VIAL IV ONE (08:47)
[2024-05-04] MEDS ORDERED: fentaNYL CITRATE 100 MCG/2 ML VL IV PRN (09:00)
[2024-05-04] MEDS: METOCLOPRAMIDE HCL 5MG/ml INJ 2ml VIAL IV ONE (09:00)
[2024-05-04] MEDS: ceFAZolin 1GM/50ML 50 ML IV ONE (09:25)
[2024-05-04] MEDS: LIDOCAINE W/ EPINEPHRINE 1% 20ML VIAL ONE (09:45)
[2024-05-04] MEDS ORDERED: SUGAMMADEX 200mg/2ml Vial (100MG/ML) IV ONE (09:53)
[2024-05-04] MEDS ORDERED: MEPERIDINE HCL (50 MG/ML) 1 ML VIAL ONE (09:53)
[2024-05-04] MEDS ORDERED: ceFAZolin 1GM VL ONE (10:08)
--- NOTE | 2024-05-04 10:53 | DVHOP2 ---
Operative Report - 2 Report Details Date: 05/04/24 Preop Diagnosis: Acute cholecystitis Postop Diagnosis: Same Surgeon: Wilberto Nagy MD Circus Roustabout: None Anesthesiologist: Bruce Bello CRNA Anesthesia: General, Local Consent: The surgery and its risks including but not limited to infection, bleeding requiring possible blood transfusion with the risk of hepatitis or HIV infection, open cholecystectomy, possible cystic duct leak or retained common bile duct stone requiring further intervention such as an ERCP, possible perioperative MA or stroke were explained to the patient. All questions were answered to her satisfaction. She expressed verbal understanding and wished to proceed with the surgery. Estimated Blood Loss: 30 mL Fluids: 800 mL Name of Procedure Performed Laparoscopic cholecystectomy Procedure Details Procedure Details: After induction of general anesthesia, patient's abdomen was prepped and draped in standard surgical fashion. A small infraumbilical incision was made and this incision was taken through the abdominal wall down to the fascia which was opened sharply. Peritoneum was then bluntly divided gaining access to the intra-abdominal cavity. Interrupted 0 Vicryl sutures were placed through the fascial incision and using an open technique, Chandni trocar was introduced and secured using the Vicryl sutures. Abdomen was insufflated to 15 mmHg and camera was inserted. Visual examination of the intestine under the fascial incision appeared normal without injury. Under direct visualization, a 5 mm bladeless trocar was placed in the subxiphoid region and two additional 5 mm bladeless trocars were placed in the right upper quadrant all under direct visualization. Examination of the right upper quadrant revealed very distended and edematous gallbladder. Gallbladder was then grasped and retracted in a cephalad direction. There was a large stone impacted in the neck and this made the mobilization a little bit more difficult in this area as the tissues in this area were somewhat indurated. After careful blunt dissection the cystic duct was identified. This was clipped and divided using Endoclips without complication. The cystic artery was located just next to the cystic duct and this was also clipped and divided using Endoclips without complication. Gallbladder was then removed from the liver bed using electrocautery. There was no bile or stone spillage during the maneuver. Gallbladder was then removed from the abdominal cavity using an endo pouch bag and sent off the surgical field. Abdomen was then re-insufflated and hemostasis in the liver bed was achieved using electrocautery. Right upper quadrant was then well irrigated until fluid was clear. Trocars were then removed under direct visualization as the abdomen was deflated. Additional interrupted 0 Vicryl sutures were placed through the infraumbilical fascial incision and the sutures were tied down closing off the infraumbilical fascia. Surgical sites were irrigated injected with 20 mL of 1% lidocaine with epinephrine. Skin incisions were closed using adiel. Surgical sites were cleaned and dried and dressings were applied. Sponge, needle, instrument count at the end of the case were reported to be correct by the nursing staff. Patient tolerated procedure well and was awakened, extubated and transferred to recovery in stable condition. Specimen: Gallbladder Condition Stable Disposition Still a Patient WILBERTO NAGY MD May 04, 2024 10:53
[2024-05-04] MEDS: HYDROmorphone HCL 2 MG/ML VL/or syr IV PRN (11:05)
[2024-05-04] MEDS: ONDANSETRON HCL 4 MG/2 ML VIAL IV ONE (11:14)
--- NOTE | 2024-05-04 14:10 | DVHPN2 ---
Subjective The patient is seen and examined at bedside. Waiting for surgery. Complain of abdominal pain. Reviewed: Care Plan, H&P, Labs, Medications Changes from previous H/P or p: No Changes General: Per HPI Eyes: No Pain, No Vision change, No Conjunctivae inflammation, No Eyelid inflammation, No Other, No Redness ENT: No Ear pain, No Ear discharge, No Nose pain, No Nose discharge, No Nose congestion, No Mouth pain, No Mouth swelling, No Throat pain, No Throat swelling, No Other Cardiovascular: No Chest Pain, No Palpitations, No Orthopnea, No Paroxysmal Noc. Dyspnea, No Edema, No Lt Headedness, No Other Respiratory: No Cough, No Dry, No Shortness of breath, No SOB with excertion, No Wheezing, No Hemoptysis, No Pleuritic Pain, No Sputum, No Other Gastrointestinal: No Nausea, No Vomiting; Abdominal Pain; No Diarrhea, No Constipation, No Melena, No Hematochezia, No Other Genitourinary: No Dysuria, No Frequency, No Incontinence, No Hematuria, No Retention, No Other Musculoskeletal: No other, No neck pain, No shoulder pain, No arm pain, No back pain, No hand pain, No leg pain, No foot pain Skin: No Rash, No Lesions, No Jaundice, No Bruising, No Other Objective Vitals Vital Signs Date Time Temp Pulse Resp B/P (MAP) Pulse Ox O2 Delivery O2 Flow Rate FiO2 05/04/24 09:21 98.7 75 16 128/71 (90) 93 98.7 05/04/24 08:00 Room Air* 0 21 Intake/Output Intake and Output 05/04/24 07:00 Intake Total 350 ml Balance 350 ml Intake Oral 0 ml IV Total 350 ml # Voids 10 General Appearance: Alert, Oriented X3, Cooperative, No acute distress, mild distress HEENT: Atraumatic, PERRLA Cardiovascular: Normal S1, Normal S2 Abdomen: Normal bowel sounds, Soft, No tenderness Musculoskeletal: Normal sensory function, Normal motor function Neuro: Normal gait, Normal speech Psych/Mental Status: Mental status NL, Mood NL Medications Current Medications Medications Dose Ordered Sig/Efra Route Start Time Stop Time Status Last Admin Dose Admin Ceftriaxone Sodium 50 ml @ 100 mls/hr DAILY IV 05/02/24 15:15 05/03/24 09:42 100 MLS/HR Lorazepam 0.5 mg Q6HP PRN PO 05/02/24 15:15 Al Hydrox/Mg Hydrox/Simethicone 30 ml Q6HP PRN PO 05/02/24 15:15 05/02/24 21:33 30 ML Docusate Sodium 100 mg BIDPRN PRN PO 05/02/24 15:15 Acetaminophen 650 mg Q6HP PRN PO 05/02/24 15:15 Acetaminophen/ Hydrocodone Bitart 1 tab Q4HP PRN PO 05/02/24 15:15 05/04/24 13:17 1 TAB Ondansetron HCl 4 mg Q4HP PRN IV 05/02/24 15:15 05/03/24 09:43 4 MG Morphine Sulfate 2 mg Q4HPRN PRN IV 05/02/24 15:15 Metronidazole 100 ml @ 100 mls/hr Q8HR IV 05/03/24 14:00 05/04/24 06:12 100 MLS/HR Potassium Chloride/Sodium Chloride 1,000 ml @ 100 mls/hr Q10H IV 05/03/24 15:45 05/04/24 11:45 100 MLS/HR Laboratory Results Laboratory Tests 05/04/24 04:47 Chemistry Test 05/04/24 04:47 Albumin 4.2 g/dL (3.2-4.8) Calcium Level 8.9 mg/dL (8.7-10.4) Total Protein 6.5 g/dL (5.7-8.2) Coagulation Test 05/04/24 04:47 Prothrombin Time 11.5 sec (9.3-11.8) Prothrombin Time INR 1.09 (0.9-1.15) Activated Partial Thromboplast Time 27.3 SEC (24.5-34.5) LFT Test 05/04/24 04:47 Alanine Aminotransferase (ALT) 26 U/L (7-40) Alkaline Phosphatase 40 U/L (46-116) L Aspartate Amino Transferase (AST) 21 U/L (13-40) Total Bilirubin 1.5 mg/dL (0.2-1.0) H Urinalysis Test 05/02/24 12:38 Urine Color Yellow (Yellow) Urine Clarity Clear (Clear) Urine pH 5.5 (5.0-9.0) Urine Specific [place] 1.029 (1.001-1.035) Urine Protein Trace (Negative) H Urine Ketones Negative (Negative) Urine Blood 1+ /uL (Negative) H Urine Nitrite Negative (Negative) Urine Bilirubin Negative (Negative) Urine Urobilinogen Normal mg/dL (Negative) Urine Leukocyte Esterase 1+ /uL (Negative) Urine RBC 6 /hpf (0 - 4) Urine WBC 2 /hpf (0 - 5) Urine Squamous Epithelial Cells Few /hpf (<5) Urine Bacteria Few /hpf (None Seen) H Urine Mucus Few (None Seen) Urine Glucose Normal mg/dL (Normal) Microbiology Microbiology Date/Time Source Procedure Growth Status 05/02/24 21:28 Stool Clostridium difficile Toxin Assay - Final Complete Labs and/or images reviewed: Labs reviewed by me Assessment/Plan Assessment/Plan -cholelithiasis with cholecystitis -rule out choledocholithiasis -UTI Plan: Continuing current management. The patient will have surgery today. Continuing to keep NPO. Continuing IV antibiotic Rocephin and Flagyl. Discuss plan of care with patient and at bedside. This medical document was created using an electronic medical record system with [employer] direct computerized dictation system. Although this document has been carefully reviewed, there may still be some phonetic and typographical errors. These areas are purely typographical due to imperfections of the software programs, and do not reflect any compromise in the patient's medical care. Plan discussed with: Patient, Spouse Date of Service: May 04, 2024 Billing Provider: KARI BUSTAMANTE MD Common Visit Codes: [id number] INP/OBS CARE(HIGH) KARI BUSTAMANTE MD May 04, 2024 14:10
[2024-05-05 01:00] VITALS: BP 135/83; PULSE 68; RESP 18; TEMP 98; O2SAT 93
[2024-05-05 05:00] VITALS: BP 112/75; PULSE 73; RESP 18; TEMP 97.9; O2SAT 93
[2024-05-05 07:21] LABS: Basophils # (auto) 0 10 ^3/uL (0-0.2); Basophils % (auto) 0.2 % (0.0-2.0); Eosinophils # (auto) 0 10 ^3/uL (0-0.8)
[2024-05-05 07:26] LABS: Hemoglobin 11.5 g/dL (12.2-16.2); Lymphocytes # (auto) 1.3 10 ^3/uL (0.4-5.4); Lymphocytes % (auto) 14.5 % (10.0-50.0); Mean Corpuscular Hemoglobin 22.5 pg (28.0-32.0); Mean Corpuscular Volume 70.3 fL (80.0-100.0); Monocytes # (auto) 0.8 10 ^3/uL (0-1.3); Monocytes % (auto) 9.2 % (0.0-12.0); Neutrophils # (auto) 6.6 10 ^3/uL (1.6-8.6); Neutrophils % (auto) 76.1 % (37.0-80.0); Platelet Count (auto) 240 10^3/uL (140-450); Red Blood Cells 5.12 10^6/uL (4.0-5.20); Red Cell Distribution Width 14.7 % (11.8-14.3); White Blood Cell 8.7 10^3/uL (4.4-10.8)
[2024-05-05 07:34] LABS: Alanine Aminotransferase 29 U/L (7-40); Albumin 3.9 g/dL (3.2-4.8); Anion Gap 8 (5-15); Aspartate Aminotransferase 20 U/L (13-40); BUN/Creatinine Ratio 10.9 (10.0-20.0); Bilirubin, Total 1.1 mg/dL (0.2-1.0); Carbon Dioxide 26 mmol/L (20-31); Chloride 106 mmol/L (98-107); Glucose 98 mg/dL (74-106); Potassium 3.5 mmol/L (3.5-5.1); Sodium 140 mmol/L (136-145); Total Protein 6.3 g/dL (5.7-8.2)
[2024-05-05 07:45] VITALS: PULSE 61; RESP 13; O2SAT 94
[2024-05-05 07:57] LABS: Blood Urea Nitrogen 6 mg/dL (9-23)
[2024-05-05 07:58] LABS: Alkaline Phosphatase 38 U/L (46-116)
--- NOTE | 2024-05-05 08:34 | DVHDS2 ---
Discharge Summary Date of Admission May 02, 2024 at 15:12 Date of Discharge: May 05, 2024 Admitting Diagnosis -cholelithiasis with cholecystitis -rule out choledocholithiasis -UTI Labs/Diagnostic Data: Laboratory Results Test 05/05/24 06:42 05/04/24 04:47 05/02/24 12:38 05/02/24 12:33 White Blood Count 8.7 10^3/uL (4.4-10.8) Red Blood Count 5.12 10^6/uL (4.0-5.20) Hemoglobin 11.5 g/dL (12.2-16.2) Hematocrit 36.0 % (36.0-46.0) Mean Corpuscular Volume 70.3 fL (80.0-100.0) Mean Corpuscular Hemoglobin 22.5 pg (28.0-32.0) Mean Corpuscular Hemoglobin Concent 32.0 g/dL (32.0-36.0) Red Cell Distribution Width 14.7 % (11.8-14.3) Platelet Count 240 10^3/uL (140-450) Mean Platelet Volume 7.7 fL (6.9-10.8) Neutrophils (%) (Auto) 76.1 % (37.0-80.0) Lymphocytes (%) (Auto) 14.5 % (10.0-50.0) Monocytes (%) (Auto) 9.2 % (0.0-12.0) Eosinophils (%) (Auto) 0.0 % (0.0-7.0) Basophils (%) (Auto) 0.2 % (0.0-2.0) Neutrophils # (Auto) 6.6 10 ^3/uL (1.6-8.6) Lymphocytes # (Auto) 1.3 10 ^3/uL (0.4-5.4) Monocytes # (Auto) 0.8 10 ^3/uL (0-1.3) Eosinophils # (Auto) 0 10 ^3/uL (0-0.8) Basophils # (Auto) 0 10 ^3/uL (0-0.2) Nucleated Red Blood Cells 0.0 % Sodium Level 140 mmol/L (136-145) Potassium Level 3.5 mmol/L (3.5-5.1) Chloride Level 106 mmol/L (98-107) Carbon Dioxide Level 26 mmol/L (20-31) Anion Gap 8 (5-15) Blood Urea Nitrogen 6 mg/dL (9-23) Creatinine 0.55 mg/dL (0.550-1.02) Glomerular Filtration Rate Calc 123 mL/min (>90) BUN/Creatinine Ratio 10.9 (10.0-20.0) Serum Glucose 98 mg/dL (74-106) Calcium Level 9.0 mg/dL (8.7-10.4) Total Bilirubin 1.1 mg/dL (0.2-1.0) Aspartate Amino Transferase (AST) 20 U/L (13-40) Alanine Aminotransferase (ALT) 29 U/L (7-40) Alkaline Phosphatase 38 U/L (46-116) Total Protein 6.3 g/dL (5.7-8.2) Albumin 3.9 g/dL (3.2-4.8) Prothrombin Time 11.5 sec (9.3-11.8) Prothrombin Time INR 1.09 (0.9-1.15) Activated Partial Thromboplast Time 27.3 SEC (24.5-34.5) Urine Color Yellow (Yellow) Urine Clarity Clear (Clear) Urine pH 5.5 (5.0-9.0) Urine Specific Silva 1.029 (1.001-1.035) Urine Protein Trace (Negative) Urine Ketones Negative (Negative) Urine Blood 1+ /uL (Negative) Urine Nitrite Negative (Negative) Urine Bilirubin Negative (Negative) Urine Urobilinogen Normal mg/dL (Negative) Urine Leukocyte Esterase 1+ /uL (Negative) Urine RBC 6 /hpf (0 - 4) Urine WBC 2 /hpf (0 - 5) Urine Squamous Epithelial Cells Few /hpf (<5) Urine Bacteria Few /hpf (None Seen) Urine Mucus Few (None Seen) Urine Glucose Normal mg/dL (Normal) Lipase 36 U/L (12-53) Beta HCG, Quantitative 1.6 mIU/mL (1.5-4.2) Other Laboratory Tests 05/05/24 06:42 Brief Hx & Hospital Course: This is a 33 years old obese female with no known past medical history except questionable history of gallbladder stone and elevation of liver function tests come to emergency department because of severe right upper quadrant abdominal pain. The patient apparently was just travel through the area. She was at [facility] one day prior to the admission day and eat some peace. After that she feel her stomach is hurting her and progressive get worse. Today she was travel to [place] with her and the pain become excruciating to the point that she had diaphoresis, nausea and vomiting so they stopped in this area and come to [facility] ER for further evaluation. In the emergency department ultrasound abdomen showed acute cholecystitis. Patient also had elevation or liver function tests. The patient was put on IV antibiotic with Rocephin and Flagyl. The C diff colitis test is negative. The patient is supposed to have MRCP however , the surgeon decided to have cholecystectomy done. Patient also supposed to see her GI specialist in [facility] so I recommend her to continuing to follow up with that appointment to see if she needs any further workup with elevation of liver function tests. At this when she had successful cholecystectomy. She able to tolerate diet. She ambulate. She passed flatus. I am going to discharge her home. Advised her to follow up with her primary care physician 1-2 weeks. Follow up with her GI specialist per schedule. Follow up with , the surgeon for postop follow up in two weeks. Activity as tolerated. Diet per home diet. Do not lift or carry any object more than 10 lb for two weeks. Physical exam: HEENT: Normocephalic atraumatic pupils equal react to light and accommodation. Extraocular muscles intact, conjunctiva pink, oropharynx moist, no thrush, no exudate. Lymphatic: No lymphadenopathy Cardiovascular exam: S1, S2 was heard. No murmurs, rubs, gallops Lung: Clear on auscultation bilaterally, no wheeze, rale, rhonchi. GI: Abdominal soft, nondistended, nontenderness, positive bowel sounds. Extremity: No crepitus, cyanosis, edema. Pedal pulses present bilateral. Full range of motion. Skin: Normal turgor, no rash. Psych: Alert, oriented x3. Neurology: No focal deficits, cranial nerve II to XII grossly intact. This medical document was created using an electronic medical record system with [employer] direct computerized dictation system. Although this document has been carefully reviewed, there may still be some phonetic and typographical errors. These areas are purely typographical due to imperfections of the software programs, and do not reflect any compromise in the patient's medical care. Condition at Discharge: Stable Final Diagnosis/Problems List -cholelithiasis with cholecystitis -rule out choledocholithiasis -UTI Discharge Disposition: Still a Patient Discharge Instruct/Medications Diet: Regular Activity: No Restrictions, As Tolerated Activity comment: Do not lift or carry any object more than 10 lbs for two weeks Medications: Continuing home medication [place] 5/325 1 tablet every 6 hours as needed for pain Levaquin 500 mg p.o. daily Flagyl 500 mg p.o. Q 8 hours Discharge Statement: "Patient was advised to return to the ER or call 911 if any headaches, dizziness, shortness of breath, chest pain, abdominal pain, bleeding, fevers, or worsening of medical condition. Patient was counseled about treatment plan, medications, possible side effects, patientverbalized understanding. All questions were answered to the best of my ability. This discharge took greater then 30 minutes in planning, reviewing documentation, counseling the patient, and discussing with other team members." ASSESSMENT ASSESSMENT Assessment Same Date of Service: May 05, 2024 Billing Provider: KARI BUSTAMANTE MD Common Visit Codes: [id number] DISCH DAY >30min KARI BUSTAMANTE MD May 05, 2024 08:34
[2024-05-05 09:00] VITALS: BP 121/61; PULSE 61; RESP 18; TEMP 97.9; O2SAT 94
--- NOTE | 2024-05-05 09:05 | DVHPN2 ---
Progress Note - Dictate Date Seen: May 05, 2024 Medical Necessity Reason Pt with a Central, PICC or Fol: No Subjective E: no major events o/n. doing better. isabelle clear liquid diet. vital signs Vital Sign Date Time Temp Pulse Resp B/P (MAP) Pulse Ox O2 Delivery O2 Flow Rate FiO2 05/05/24 05:00 97.9 73 18 112/75 (87) 93 97.9 05/04/24 20:00 Room Air* 0 21 Total Intake and Output 05/04/24 05/04/24 05/05/24 15:00 23:00 07:00 Intake Total 150 ml 600 ml 600 ml Output Total 800 ml Balance 150 ml -200 ml 600 ml medications Current Medications Medications Dose Ordered Sig/Efra Route Start Time Stop Time Status Last Admin Dose Admin Ceftriaxone Sodium 50 ml @ 100 mls/hr DAILY IV 05/02/24 15:15 05/03/24 09:42 100 MLS/HR Lorazepam 0.5 mg Q6HP PRN PO 05/02/24 15:15 Al Hydrox/Mg Hydrox/Simethicone 30 ml Q6HP PRN PO 05/02/24 15:15 05/02/24 21:33 30 ML Docusate Sodium 100 mg BIDPRN PRN PO 05/02/24 15:15 Acetaminophen 650 mg Q6HP PRN PO 05/02/24 15:15 Acetaminophen/ Hydrocodone Bitart 1 tab Q4HP PRN PO 05/02/24 15:15 05/05/24 07:02 1 TAB Ondansetron HCl 4 mg Q4HP PRN IV 05/02/24 15:15 05/05/24 07:03 4 MG Morphine Sulfate 2 mg Q4HPRN PRN IV 05/02/24 15:15 Metronidazole 100 ml @ 100 mls/hr Q8HR IV 05/03/24 14:00 05/05/24 05:48 100 MLS/HR Potassium Chloride/Sodium Chloride 1,000 ml @ 100 mls/hr Q10H IV 05/03/24 15:45 05/04/24 21:45 100 MLS/HR objective GEN: NAD ABD: surgical dressings clean and dry. laboratory and microbiology Laboratory Tests 05/05/24 06:42 Test 05/05/24 06:42 Range/Units Serum Glucose 98 74-106 mg/dL Assessment/Plan A: 1. s/p lap cholecystectomy POD #1 doing well. P: 1. stable from surgery POV. 2. dc home if ok with hospitalist. 3. remove bandages tomorrow. ok to get incisions wet tomorrow. Plan discussed with: Patient WILBERTO DISLA MD May 05, 2024 09:05
--- NOTE | 2024-05-05 09:08 | ECG ---
[facility] Test Date: 2024-05-03 Test Time: 05:38:20 Pat Name: ZORAN VILLARREAL Department: Respiratoy Room: 0296 B Gender: F [employer]: OSVALDO : 1990 Requested By: JOANN MYLES Order Number: [id number] Reading MD: Gm Booker Measurements Intervals [place] Rate: 68 P: 70 MO: 146 QRS: 80 QRSD: 101 T: 11 QT: 422 QTc: 449 Interpretive Statements Sinus rhythm Nonspecific T abnormalities, anterior leads Electronically Signed On 05-06-2024 9:08:46 PST by Gm Booker Please click the below link to view image of tracing.
[2024-05-05] MEDS ORDERED: HYDR-4902 PO (11:16)
[2024-05-05] MEDS ORDERED: METR-344 PO (11:16)
[2024-05-05] MEDS ORDERED: LEVO500T91 PO (11:16)
[2024-05-05 12:20] VITALS: BP 121/61; PULSE 61; RESP 13; TEMP 97.9; O2SAT 94
== END 2024-05-05 13:05 | disposition home or self-care (01) | DRG 418 ==
LOC: ER 12:12 → OVERFLOW 15:12 → WEST WING 17:48
PROVIDERS: ADMIT Hospitalist; ATTEND Nurse Practitioner Acute Care
PROC: 0FT44ZZ Resection of Gallbladder, Percutaneous Endoscopic Approach (ICD-10-PCS; principal; 2024-05-04 09:25)
DX: K80.67 Calculus of gallbladder and bile duct with acute and chronic cholecystitis with obstruction (principal); N39.0 Urinary tract infection, site not specified; E66.9 Obesity, unspecified; Z68.28 Body mass index [BMI] 28.0-28.9, adult; Z82.49 Family history of ischemic heart disease and other diseases of the circulatory system; Z83.3 Family history of diabetes mellitus
CPT/HCPCS: 36415; 80053; 85025; 85610; 85730; 93005; 96361; 96374; 96375; 99291; G0378; J0330; J0690; J1100; J2250; J2405; J2704; J3490